=== PATIENT | female | born 1975 | race Caucasian/White ===

== ENCOUNTER → 2016-11-20 | Outpatient (CLI) | payer MEDICAID ==
[~2016-11-20] MED LIST: DOCU-30 PO; HYDR-3240 PO; IBUP-1222 PO; PREN1TAB27 PO
[2016-11-20 13:05] LABS: HEMOGLOBIN 14.7 g/dL (11.7-16.4)
== END | disposition home or self-care (01) ==
LOC: STAR 11:28
PROVIDERS: ATTEND Student in an Organized Health Care Education/Training Program
DX: Z01.818 Encounter for other preprocedural examination (principal)
CPT/HCPCS: 36415; 85025

== ENCOUNTER 2016-11-29 08:00 | Day surgery (SDC) | payer MEDICAID ==
[2016-11-20 12:16] VITALS: BP 130/78
[~2016-11-29] VITALS: Ht 175.3 cm; Wt 129.0 kg
[2016-11-29] MEDS ORDERED: LACTATED RINGERS 1,000 ML IV SCH (08:27)
[2016-11-29 08:28] VITALS: BP 130/78
[2016-11-29] MEDS ORDERED: LIDOCAINE 1%, 2ML SQ PRN (08:30)
[2016-11-29 08:45] LABS: HCG UR OBC PASS
[2016-11-29] MEDS ORDERED: SCOPOLAMINE PATCH, 1.5MG PATCH.TD72 TD ONE (09:00)
[2016-11-29] MEDS ORDERED: FENTANYL PF 250 MCG/5ML ONE (09:01)
[2016-11-29] MEDS ORDERED: MIDAZOLAM 1 MG/ML, 2ML ONE (09:01)
[2016-11-29] MEDS ORDERED: LABETALOL 5MG/ML, 20ML IV PRN (09:30)
[2016-11-29] MEDS ORDERED: EPHEDRINE 50 MG/ML, 1ML IVPush PRN (09:30)
[2016-11-29] MEDS ORDERED: HYDROmorphone 1 MG/ML, 1ML IV PRN (09:30)
[2016-11-29] MEDS ORDERED: ACETAMINOPHEN 325 MG TABLET PO PRN (09:30)
[2016-11-29] MEDS ORDERED: hydrALAzine 20 MG/ML, 1ML IV PRN (09:30)
[2016-11-29] MEDS ORDERED: MIDAZOLAM 1 MG/ML, 2ML IV PRN (09:30)
[2016-11-29] MEDS ORDERED: PROMETHAZINE 25 MG/ML, 1ML IV PRN (09:30)
[2016-11-29] MEDS ORDERED: METOCLOPRAMIDE 5 MG/ML, 2ML IV PRN (09:30)
[2016-11-29] MEDS ORDERED: FENTANYL PF 100 MCG/2ML IV PRN (09:30)
[2016-11-29] MEDS ORDERED: METOPROLOL 1 MG/ML, 5ML IV PRN (09:30)
[2016-11-29] MEDS ORDERED: ONDANSETRON 2MG/ML, 2ML IVPush PRN (09:30)
[2016-11-29] MEDS ORDERED: OXYcodone 5 MG/5 ML ORAL.SOL UDC PO PRN (09:30)
[2016-11-29] MEDS ORDERED: MEPERIDINE/PF 25MG/0.5ML IVPush PRN (09:30)
[2016-11-29] MEDS ORDERED: SILVER NITRATE STICK TP ONE (09:58)
[2016-11-29] MEDS ORDERED: BUPIVACAINE/PF-EPI 0.25% 1:200K ONE (09:58)
[2016-11-29] MEDS ORDERED: KETOROLAC 30 MG/1 ML ONE (10:19)
[2016-11-29] MEDS ORDERED: ROCURONIUM 10 MG/ML ONE (10:19)
[2016-11-29] MEDS ORDERED: SUCCINYLCHOLINE 20 MG/ML, 10ML ONE (10:19)
[2016-11-29] MEDS ORDERED: NEOSTIGMINE 1 MG/ML, 10ML ONE (10:19)
[2016-11-29] MEDS ORDERED: CEFOTETAN 2 GM ONE (10:19)
[2016-11-29] MEDS ORDERED: ONDANSETRON 2MG/ML, 2ML ONE (10:19)
[2016-11-29] MEDS ORDERED: PROPOFOL 10 MG/ML, 20ML ONE (10:19)
[2016-11-29] MEDS ORDERED: ACETAMINOPHEN 650 MG/20.3 ML UDC ONE (11:41)
[2016-11-29] MEDS ORDERED: ACETAMINOPHEN 325 MG TABLET ONE (11:41)
[2016-11-29] MEDS ORDERED: OXYcodone 5 MG/5 ML ORAL.SOL UDC ONE (11:42)
== END 2016-11-29 14:52 | disposition home or self-care (01) ==
LOC: OUT 08:00
PROVIDERS: ATTEND Student in an Organized Health Care Education/Training Program
DX: Z30.2 Encounter for sterilization (principal); Z80.49 Family history of malignant neoplasm of other genital organs
CPT/HCPCS: 36415; 58661; 81025; 86850; 86900; 88302; J0330; J1885; J2250; J2405; J2704; J2710; J3010; J3490; J7120; S0074